=== PATIENT | male | born 1945 | race Native Hawaiian/Other Pacific Islander ===

== ENCOUNTER 2017-11-12 13:51 | Emergency (ER) | payer MEDICARE, OTHER ==
[~2017-11-12] VITALS: Ht 167.6 cm; Wt 77.3 kg
[~2017-11-12 13:51] MED LIST: ASPI81TA87 PO; METF850T2 PO; SIMV10TA2 PO
[2017-11-12] MEDS ORDERED: SODIUM CHLORIDE 0.9% 1,000 ML IV ONE (14:15)
[2017-11-12] MEDS ORDERED: ACETAMINOPHEN 500 MG TABLET PO ONE (14:15)
[2017-11-12] MEDS ORDERED: METF500T6 PO (14:17)
[2017-11-12 14:34] LABS: BASOPHILS % (AUTO) 0.2 % (0.0-2.0); EOSINOPHILS % (AUTO) 0.1 % (1.0-6.0); HEMATOCRIT 40.7 % (41-53); LYMPHOCYTES # (AUTO) 0.8 K/uL (1.0-4.8); MEAN CORPUSCULAR HEMOGLOBIN 31.4 pg (26.0-34.0); MEAN CORPUSCULAR HGB CONC 34.5 G/dL (31.0-37.0); MEAN CORPUSCULAR VOLUME 91 fL (80-100); MONOCYTES # (AUTO) 0.7 K/uL (0.1-1.0); MONOCYTES % (AUTO) 8.9 % (2.0-9.0); NEUTROPHILS % (AUTO) 79.8 % (40.0-70.0); PLATELET COUNT (AUTO) 174 K/uL (150-450); RED BLOOD CELL COUNT(AUTO) 4.47 MIL/uL (4.50-5.90); RED CELL DISTRIBUTION WIDTH 13.6 % (11.5-14.5)
[2017-11-12 14:42] LABS: ANION GAP 8 mmol/L (8-16); CALCIUM, TOTAL 8.6 mg/dL (8.8-10.5); CARBON DIOXIDE 28 mmol/L (22-29); CHLORIDE 95 mmol/L (98-107); CREATININE 0.78 mg/dL (0.60-1.30); GLOMERULAR FILTR. RATE CALC > 60 mL/min (>60); GLUCOSE,RANDOM 186 mg/dL (70-110); POTASSIUM 4.7 mmol/L (3.5-5.1); SODIUM SERUM 131 mmol/L (136-145); UREA NITROGEN, BLOOD 9 mg/dL (7-18)
[2017-11-12 15:07] LABS: ALANINE AMINOTRANSFERASE 37 U/L (12-78); ALBUMIN 3.3 g/dL (3.4-5.0); ALKALINE PHOSPHATASE 99 U/L (46-116); ASPARTATE AMINOTRANSFERASE 41 U/L (15-37); BILIRUBIN,TOTAL 1.5 mg/dL (0.1-1.0); CREATINE KINASE MB 0.8 ng/mL (0-5); CREATINE KINASE, TOTAL 151 U/L (39-308); TOTAL PROTEIN, SERUM 7.6 g/dL (6.4-8.2)
[2017-11-12 15:22] LABS: APPEARANCE,URINE CLEAR (CLEAR); BILIRUBIN,URINE PRELIM. POSITIVE (NEGATIVE); GLUCOSE, URINE (UA) 100 mg/dL (NEGATIVE); KETONES,URINE TRACE mg/dL (NEGATIVE); LEUKOCYTE ESTERASE ,URINE SMALL (NEGATIVE); NITRATE,URINE NEGATIVE (NEGATIVE); OCCULT BLOOD,URINE NEGATIVE (NEGATIVE); PROTEIN,URINE POS 1+ (NEGATIVE)
[2017-11-12 15:53] LABS: RBC,URINE 0-2 /HPF (0-2); WBC,URINE 0-2 /HPF (0-5)
[2017-11-12 15:54] LABS: BACTERIA,URINE None Seen /HPF (None Seen); SQUAMOUS EPITHELIAL CELL,UR Few /LPF (None Seen)
[2017-11-12] MEDS ORDERED: ALBUTEROL SULFATE HFA 90 MCG/PUFF 8 GM INHALER IH ONE (16:45)
[2017-11-12 17:09] VITALS: BP 121/74
== END 2017-11-12 17:43 | disposition home or self-care (01) ==
LOC: EMS 13:53
DX: R06.02 Shortness of breath (principal); R50.9 Fever, unspecified; E78.00 Pure hypercholesterolemia, unspecified; E11.9 Type 2 diabetes mellitus without complications; Z79.84 Long term (current) use of oral hypoglycemic drugs
CPT/HCPCS: 36415; 71045; 80053; 81001; 82550; 82553; 84484; 85025; 93005; 94640; 99285; J7030; J3535

== ENCOUNTER 2022-10-27 10:40 | Emergency (ER) | payer MEDICARE, OTHER ==
[~2022-10-27] VITALS: Ht 162.6 cm; Wt 70.5 kg
[~2022-10-27 10:40] MED LIST changes: -ASPI81TA87 PO; +METF-1211 PO; -METF850T2 PO; -SIMV10TA2 PO
[2022-10-27 10:41] VITALS: BP 140/68; PULSE 82; RESP 16; TEMP 97.5
[2022-10-27 11:01] LABS: GLUCOMETER DEV NAME(LOC) ERT.5
[2022-10-27] MEDS ORDERED: POLY17PO PO (11:25)
== END 2022-10-27 11:38 | disposition home or self-care (01) ==
LOC: EMS 10:40
DX: K59.00 Constipation, unspecified (principal); E11.9 Type 2 diabetes mellitus without complications; E78.00 Pure hypercholesterolemia, unspecified
CPT/HCPCS: 82962; 99282

== ENCOUNTER 2022-11-18 07:25 | Emergency (ER) | payer MEDICARE, OTHER ==
[~2022-11-18] VITALS: Ht 162.6 cm; Wt 72.7 kg
[~2022-11-18 07:25] MED LIST changes: +POLY17PO PO
[2022-11-18 07:27] VITALS: TEMP 98.7
[2022-11-18] MEDS ORDERED: SENN-376 PO (07:33)
[2022-11-18] MEDS ORDERED: [UNRECOGNIZED DRUG - REMARK] PO (07:35)
[2022-11-18] MEDS ORDERED: PEG 3350/NA SULF,BICARB,CL/KCL 4000 ML SOLUTION PO ONE (08:00)
[2022-11-18 09:00] VITALS: BP 129/72; PULSE 67; RESP 16
== END 2022-11-18 09:26 | disposition home or self-care (01) ==
LOC: EMS 08:09
DX: K59.00 Constipation, unspecified (principal); E11.9 Type 2 diabetes mellitus without complications; E78.00 Pure hypercholesterolemia, unspecified
CPT/HCPCS: 74019; 82962; 99283

== ENCOUNTER 2022-11-20 09:11 | Emergency (ER) | payer MEDICARE, OTHER ==
[~2022-11-20] VITALS: Ht 162.6 cm; Wt 63.6 kg
[~2022-11-20 09:11] MED LIST changes: +SENN-376 PO; +[UNRECOGNIZED DRUG - REMARK] PO
[2022-11-20 09:12] VITALS: TEMP 98.3
[2022-11-20] MEDS ORDERED: SULF-261 PO (11:12)
[2022-11-20] MEDS ORDERED: CEPH-558 PO (11:12)
[2022-11-20 11:34] VITALS: BP 141/71; PULSE 84; RESP 16
== END 2022-11-20 11:39 | disposition home or self-care (01) ==
LOC: EMS 09:11
DX: L72.0 Epidermal cyst (principal); E11.9 Type 2 diabetes mellitus without complications; E78.00 Pure hypercholesterolemia, unspecified
CPT/HCPCS: 10060; 99283

== ENCOUNTER 2022-11-22 08:05 | Emergency (ER) | payer MEDICARE, OTHER ==
[~2022-11-22] VITALS: Ht 162.6 cm; Wt 65.9 kg
[~2022-11-22 08:05] MED LIST changes: +CEPH-558 PO; +SULF-261 PO
[2022-11-22 08:25] VITALS: TEMP 98.3
[2022-11-22 09:24] VITALS: BP 103/58; PULSE 81; RESP 18
[2022-11-22] MEDS ORDERED: CEPHALEXIN MONOHYDRATE 500 MG CAPSULE PO ONE (09:30)
[2022-11-22] MEDS ORDERED: SULFAMETHOX/TRIMETH DS 800-160 MG/TABLET PO ONE (09:30)
== END 2022-11-22 09:57 | disposition home or self-care (01) ==
LOC: EMS 08:11
DX: Z48.00 Encounter for change or removal of nonsurgical wound dressing (principal); E11.9 Type 2 diabetes mellitus without complications; E78.00 Pure hypercholesterolemia, unspecified
CPT/HCPCS: 82962; 99283

== ENCOUNTER 2023-07-18 12:07 | Emergency (ER) | payer OTHER ==
[~2023-07-18] VITALS: Ht 165.1 cm; Wt 63.6 kg
[~2023-07-18 12:07] MED LIST changes: -POLY17PO PO; +POLY17PO11 PO; -[UNRECOGNIZED DRUG - REMARK] PO
[2023-07-18 12:10] VITALS: BP 129/80; PULSE 96; RESP 18; TEMP 99.1
[2023-07-18 14:44] LABS: BASOPHILS % (AUTO) 0.2 % (0.0-2.0); EOSINOPHILS % (AUTO) 0.1 % (1.0-6.0); HEMATOCRIT 39.7 % (41-53); HEMOGLOBIN 13.6 g/dL (13.5-17.5); LYMPHOCYTES # (AUTO) 0.7 K/uL (1.0-4.8); LYMPHOCYTES % (AUTO) 7.2 % (22.0-44.0); MEAN CORPUSCULAR HEMOGLOBIN 31.3 pg (26.0-34.0); MEAN CORPUSCULAR HGB CONC 34.3 G/dL (31.0-37.0); MEAN CORPUSCULAR VOLUME 91 fL (80-100); MONOCYTES # (AUTO) 0.4 K/uL (0.1-1.0); MONOCYTES % (AUTO) 4.6 % (2.0-9.0); NEUTROPHILS # (AUTO) 8.2 K/uL (1.8-7.7); PLATELET COUNT (AUTO) 238 K/uL (150-450); RED BLOOD CELL COUNT(AUTO) 4.35 MIL/uL (4.50-5.90); RED CELL DISTRIBUTION WIDTH 13.2 % (11.5-14.5); WHITE BLOOD COUNT (AUTO) 9.3 K/uL (4.5-11.0)
[2023-07-18 14:45] LABS: NEUTROPHILS % (AUTO) 87.9 % (40.0-70.0)
[2023-07-18 14:47] LABS: ANION GAP 7 mmol/L (8-16); CALCIUM, TOTAL 8.8 mg/dL (8.8-10.5); CARBON DIOXIDE 30 mmol/L (22-29); CHLORIDE 102 mmol/L (98-107); CREATININE 0.73 mg/dL (0.60-1.30); GLOMERULAR FILTR. RATE CALC > 60 mL/min (>60); GLUCOSE,RANDOM 130 mg/dL (70-110); POTASSIUM 4.2 mmol/L (3.5-5.1); SODIUM SERUM 139 mmol/L (136-145); UREA NITROGEN, BLOOD 12 mg/dL (7-18)
[2023-07-18 14:52] LABS: ALANINE AMINOTRANSFERASE 19 U/L (12-78); ALBUMIN 3.5 g/dL (3.4-5.0); ALKALINE PHOSPHATASE 71 U/L (46-116); ASPARTATE AMINOTRANSFERASE 18 U/L (15-37); BILIRUBIN,TOTAL 0.6 mg/dL (0.1-1.0); LIPASE 46 U/L (16-77); TOTAL PROTEIN, SERUM 7.1 g/dL (6.4-8.2)
[2023-07-18 14:59] LABS: TROPONIN I-HIGH SENSITIVITY 32 ng/L (<76)
[2023-07-18] MEDS ORDERED: POLY119P3 PO (16:09)
== END 2023-07-18 16:30 | disposition home or self-care (01) ==
LOC: EMS 12:07
DX: K64.4 Residual hemorrhoidal skin tags (principal); K59.00 Constipation, unspecified; E11.9 Type 2 diabetes mellitus without complications; E78.00 Pure hypercholesterolemia, unspecified
CPT/HCPCS: 74022; 80053; 83690; 84484; 85025; 99284